=== PATIENT | male | born 1975 | race Caucasian/White ===

== ENCOUNTER 2017-07-31 09:11 | Inpatient (IN) | payer BC ==
[~2017-07-31] VITALS: Ht 182.9 cm; Wt 119.2 kg
[2017-07-31] MEDS ORDERED: LORazepam 2 MG/ML, 1ML IVPush ONE (09:30)
[2017-07-31] MEDS ORDERED: ASPIRIN 81 MG TABLET CHEW PO ONE (09:30)
[2017-07-31] MEDS ORDERED: SODIUM CHLORIDE 0.9% 1,000ML IVBOLUS ONE (09:30)
[2017-07-31] MEDS ORDERED: SODIUM CHLORIDE FLUSH 10ML SYR IVF ONE (09:30)
[2017-07-31 09:42] LABS: BASOPHILS # (AUTO) 0.05 x10^3/uL (0-0.1); BASOPHILS % (AUTO) 1 % (0-1); EOSINOPHILS # (AUTO) 0.16 x10^3/uL (0-0.4); EOSINOPHILS % (AUTO) 3 % (1-7); LYMPHOCYTES # (AUTO) 1.84 x10^3/uL (1-3.4); LYMPHOCYTES % (AUTO) 30 % (22-44); MD NO; MEAN CORPUSCULAR HEMOGLOBIN 34.1 pg (27.5-34.5); MEAN CORPUSCULAR HGB CONC 34.4 g/dL (33.2-36.2); MEAN CORPUSCULAR VOLUME 99.1 fL (81-97); MEAN PLATELET VOLUME 7.8 fL (7.4-10.4); MONOCYTES # (AUTO) 0.52 x10^3/uL (0.2-0.8); MONOCYTES % (AUTO) 8 % (2-9); NEUTROPHILS # (AUTO) 3.62 x10^3/uL (1.8-6.8); NEUTROPHILS % (AUTO) 59 % (42-75); PLATELET COUNT 255 x10^3/uL (130-400); RED BLOOD COUNT 4.76 x10^6/uL (4.38-5.82); RED CELL DISTRIBUTION WIDTH 12.4 % (9.4-14.8)
[2017-07-31] MEDS ORDERED: SILD25TA PO (09:50)
[2017-07-31 09:53] LABS: ANION GAP 12 mmol/L (5-15); CALCIUM 8.8 mg/dL (8.5-10.1); CHLORIDE 108 mmol/L (98-107)
[2017-07-31] MEDS ORDERED: ASPIRIN 81 MG TABLET CHEW ONE (09:56)
[2017-07-31 09:59] LABS: ALANINE AMINOTRANSFERASE 63 U/L (12-78); ALKALINE PHOSPHATASE 73 U/L (45-117); BILIRUBIN,TOTAL 0.5 mg/dL (0.2-1.0); CREATININE 1.61 mg/dL (0.7-1.3); TOTAL PROTEIN 7.3 g/dL (6.4-8.2); TROPONIN I 0.016 ng/mL (0.000-0.045)
[2017-07-31 10:42] LABS: INTERNATIONAL NORMALIZED RATIO 0.95 (0.93-1.1); PROTHROMBIN TIME 9.8 Seconds (9.6-11.5)
[2017-07-31] MEDS ORDERED: SODIUM CHLORIDE 0.9%, 500ML IVBOLUS ONE (11:00)
[2017-07-31 11:07] LABS: MICROSCOPIC INDICATED
[2017-07-31 11:08] LABS: AMPHETAMINE SCREEN, URINE Positive (Negative); BARBITURATE SCREEN, URINE Negative (Negative); BENZODIAZEPINE SCREEN, URINE Negative (Negative); CANNABINOID SCREEN, URINE Negative (Negative); COCAINE SCREEN, URINE Negative (Negative); METHADONE SCREEN, URINE Negative (Negative); OPIATE SCREEN, URINE Negative (Negative)
[2017-07-31 11:13] LABS: CULTURE INDICATED? NO
[2017-07-31] MEDS ORDERED: hydrALAzine 20 MG/ML, 1ML IVPush PRN (12:00)
[2017-07-31] MEDS ORDERED: LORazepam 1MG TABLET PO PRN (12:00)
[2017-07-31] MEDS ORDERED: ONDANSETRON ODT 4 MG PO PRN (12:00)
[2017-07-31] MEDS ORDERED: SODIUM BICARBONATE 8.4% 75 MEQ in DEXTROSE 5% 1,000 ML IV SCH (12:00)
[2017-07-31] MEDS ORDERED: MORPHINE SULFATE 4 MG/ML, 1ML IVPush PRN (12:00)
[2017-07-31] MEDS ORDERED: ENALAPRILAT 1.25 MG/ML, 2ML IVPush PRN (12:00)
[2017-07-31] MEDS ORDERED: ONDANSETRON 2MG/ML, 2ML IVPush PRN (12:00)
[2017-07-31] MEDS ORDERED: OMNIPAQUE 350 MG/ML, 100ML BOTTLE ONE (12:23)
[2017-07-31 12:54] VITALS: BP 119/80
[2017-07-31] MEDS: ENOXAPARIN 40 MG/0.4 ML SQ SCH (13:15)
[2017-07-31 16:18] LABS: TROPONIN I 0.179 ng/mL (0.000-0.045)
[2017-07-31 17:11] LABS: TROPONIN I 0.162 ng/mL (0.000-0.045)
[2017-07-31] MEDS: METOPROLOL TARTRATE 25 MG TABLET PO SCH (18:47)
[2017-07-31] MEDS ORDERED: ALBUTEROL/IPRATROPIUM 2.5MG/0.5MG, 3 ML NPPB SCH (20:00)
[2017-07-31] MEDS: ALBUTEROL/IPRATROPIUM 2.5MG/0.5MG, 3 ML NPPB SCH (20:30)
[2017-07-31 21:15] VITALS: BP 116/52
[2017-07-31 23:02] LABS: TROPONIN I 0.049 ng/mL (0.000-0.045)
[2017-08-01 02:10] VITALS: BP 108/62
[2017-08-01 04:59] LABS: ANION GAP 5 mmol/L (5-15); CALCIUM 8.8 mg/dL (8.5-10.1); CHLORIDE 110 mmol/L (98-107); CREATININE 1.07 mg/dL (0.7-1.3)
[2017-08-01 05:00] LABS: BASOPHILS # (AUTO) 0.03 x10^3/uL (0-0.1); BASOPHILS % (AUTO) 0 % (0-1); EOSINOPHILS # (AUTO) 0.01 x10^3/uL (0-0.4); EOSINOPHILS % (AUTO) 0 % (1-7); LYMPHOCYTES # (AUTO) 1.14 x10^3/uL (1-3.4); LYMPHOCYTES % (AUTO) 10 % (22-44); MD NO; MEAN CORPUSCULAR HEMOGLOBIN 33.8 pg (27.5-34.5); MEAN CORPUSCULAR HGB CONC 33.5 g/dL (33.2-36.2); MEAN CORPUSCULAR VOLUME 100.9 fL (81-97); MEAN PLATELET VOLUME 8.2 fL (7.4-10.4); MONOCYTES # (AUTO) 0.78 x10^3/uL (0.2-0.8); MONOCYTES % (AUTO) 7 % (2-9); NEUTROPHILS # (AUTO) 9.61 x10^3/uL (1.8-6.8); NEUTROPHILS % (AUTO) 83 % (42-75); PLATELET COUNT 244 x10^3/uL (130-400); RED BLOOD COUNT 4.29 x10^6/uL (4.38-5.82); RED CELL DISTRIBUTION WIDTH 12.9 % (9.4-14.8)
[2017-08-01 05:50] VITALS: BP 131/79
[2017-08-01] MEDS: METOPROLOL TARTRATE 25 MG TABLET PO SCH ×2 (05:56→17:06)
[2017-08-01] MEDS: ASPIRIN 325 MG TABLET EC PO SCH (05:56)
[2017-08-01] MEDS: ALBUTEROL/IPRATROPIUM 2.5MG/0.5MG, 3 ML NPPB SCH ×4 (07:12→21:00)
[2017-08-01 07:37] VITALS: BP 123/72
[2017-08-01] MEDS ORDERED: REGADENOSON 0.4 MG/5 ML SYRINGE ONE (09:20)
[2017-08-01] MEDS: SODIUM BICARBONATE 8.4% 75 MEQ in DEXTROSE 5% 1,000 ML IV SCH ×2 (11:28→21:31)
[2017-08-01] MEDS: ENOXAPARIN 40 MG/0.4 ML SQ SCH (11:29)
[2017-08-01 14:43] VITALS: BP 134/74
[2017-08-01 17:45] VITALS: BP 129/72
[2017-08-01] MEDS: CEFTRIAXONE PMX 2GM/50ML 50 ML IV SCH (20:22)
[2017-08-01 21:31] VITALS: BP 108/50
[2017-08-02 02:04] VITALS: BP 117/63
[2017-08-02 05:11] LABS: ANION GAP 6 mmol/L (5-15); CALCIUM 8.6 mg/dL (8.5-10.1); CHLORIDE 108 mmol/L (98-107); CREATININE 1.13 mg/dL (0.7-1.3)
[2017-08-02 06:24] VITALS: BP 112/69
[2017-08-02] MEDS: ASPIRIN 325 MG TABLET EC PO SCH (06:29)
[2017-08-02] MEDS: METOPROLOL TARTRATE 25 MG TABLET PO SCH ×2 (06:29→17:30)
[2017-08-02] MEDS: AZITHROMYCIN 250 MG TABLET PO SCH (08:35)
[2017-08-02] MEDS: ALBUTEROL/IPRATROPIUM 2.5MG/0.5MG, 3 ML NPPB SCH (09:00)
[2017-08-02] MEDS: SODIUM BICARBONATE 8.4% 75 MEQ in DEXTROSE 5% 1,000 ML IV SCH (09:16)
[2017-08-02] MEDS ORDERED: ALBUTEROL/IPRATROPIUM 2.5MG/0.5MG, 3 ML NPPB PRN (10:30)
[2017-08-02] MEDS: ENOXAPARIN 40 MG/0.4 ML SQ SCH (11:56)
[2017-08-02 15:55] VITALS: BP 123/67
[2017-08-02] MEDS ORDERED: CEFD300C37 PO (16:28)
[2017-08-02] MEDS ORDERED: GUAI-42 PO (16:28)
[2017-08-02] MEDS ORDERED: METO25TA35 PO (16:28)
[2017-08-02] MEDS ORDERED: AZIT500T5 PO (16:28)
[2017-08-02 19:40] VITALS: BP 129/68
[2017-08-02] MEDS: CEFTRIAXONE PMX 2GM/50ML 50 ML IV SCH (21:04)
[2017-08-03 03:04] VITALS: BP 111/71
[2017-08-03 05:06] LABS: BASOPHILS # (AUTO) 0.04 x10^3/uL (0-0.1); BASOPHILS % (AUTO) 0 % (0-1); EOSINOPHILS # (AUTO) 0.13 x10^3/uL (0-0.4); EOSINOPHILS % (AUTO) 1 % (1-7); LYMPHOCYTES # (AUTO) 2.44 x10^3/uL (1-3.4); LYMPHOCYTES % (AUTO) 20 % (22-44); MD NO; MEAN CORPUSCULAR HEMOGLOBIN 34.2 pg (27.5-34.5); MEAN CORPUSCULAR HGB CONC 33.7 g/dL (33.2-36.2); MEAN CORPUSCULAR VOLUME 101.4 fL (81-97); MEAN PLATELET VOLUME 8.1 fL (7.4-10.4); MONOCYTES # (AUTO) 1.11 x10^3/uL (0.2-0.8); MONOCYTES % (AUTO) 9 % (2-9); NEUTROPHILS # (AUTO) 8.77 x10^3/uL (1.8-6.8); NEUTROPHILS % (AUTO) 70 % (42-75); PLATELET COUNT 242 x10^3/uL (130-400); RED BLOOD COUNT 4.44 x10^6/uL (4.38-5.82); RED CELL DISTRIBUTION WIDTH 12.7 % (9.4-14.8)
[2017-08-03 05:18] LABS: CHLORIDE 108 mmol/L (98-107)
[2017-08-03 05:23] LABS: ANION GAP 7 mmol/L (5-15); CALCIUM 8.8 mg/dL (8.5-10.1); CREATININE 0.95 mg/dL (0.7-1.3)
[2017-08-03] MEDS: METOPROLOL TARTRATE 25 MG TABLET PO SCH (06:22)
[2017-08-03 08:15] VITALS: BP 145/75
[2017-08-03] MEDS: AZITHROMYCIN 250 MG TABLET PO SCH (08:19)
[2017-08-03 11:02] VITALS: BP 117/72
== END 2017-08-03 11:15 | disposition home or self-care (01) | DRG 871 ==
LOC: ED 10:20 → EDIP 10:35 → 5SO 12:47 → 4NOR 08-01 17:24
PROVIDERS: ADMIT Hospitalist; ATTEND Hospitalist
DX: A41.9 Sepsis, unspecified organism (principal); J18.9 Pneumonia, unspecified organism; N17.0 Acute kidney failure with tubular necrosis; E87.4 Mixed disorder of acid-base balance; F12.90 Cannabis use, unspecified, uncomplicated; F15.90 Other stimulant use, unspecified, uncomplicated; F17.290 Nicotine dependence, other tobacco product, uncomplicated; F41.9 Anxiety disorder, unspecified; W18.30XA Fall on same level, unspecified, initial encounter; Y93.64 Activity, baseball; Y92.320 Baseball field as the place of occurrence of the external cause; Y99.8 Other external cause status; Z79.82 Long term (current) use of aspirin; Z88.8 Allergy status to other drugs, medicaments and biological substances
CPT/HCPCS: 36415; 71045; 71275; 78452; 80048; 80053; 80307; 81001; 83735; 83880; 84100; 84145; 84443; 84484; 85025; 85379; 85610; 87040; 93005; 93017; 93306; 94640; J0696; J1650; J2785; J7070; J7620; Q9967; A9502; J2060; J7030; J7040; J7512

== ENCOUNTER 2018-02-02 19:15 | Emergency (ER) | payer SELFPAY ==
[~2018-02-02] VITALS: Ht 182.9 cm; Wt 102.9 kg
[~2018-02-02 19:15] MED LIST: AZIT500T5 PO; CEFD300C37 PO; GUAI-42 PO; METO25TA35 PO; SILD25TA PO
[2018-02-02 19:17] VITALS: BP 127/75
== END 2018-02-02 20:00 | disposition home or self-care (01) ==
LOC: ED 19:30
DX: J20.8 Acute bronchitis due to other specified organisms (principal); J06.9 Acute upper respiratory infection, unspecified; Z76.0 Encounter for issue of repeat prescription
CPT/HCPCS: 71046; 99283